=== PATIENT | female | born 2000 ===

== ENCOUNTER 2020-12-20 13:58 | Outpatient (CLI) | payer OTHER | END 2020-12-20 14:40 | disposition home or self-care (01) | LOC: PRENATAL 13:58 | PROVIDERS: ATTEND Obstetrics & Gynecology Maternal & Fetal Medicine | DX: Z36.89 Encounter for other specified antenatal screening (principal); O36.80X1 Pregnancy with inconclusive fetal viability, fetus 1; Z3A.15 15 weeks gestation of pregnancy ==